=== PATIENT | male | born 1960 | race Caucasian/White ===

== ENCOUNTER → 2019-03-12 15:02 | Outpatient (BNVA) | payer OTHER, SELFPAY | PROVIDERS: Family Provider Internal Medicine; PCP Internal Medicine; Visit Provider Anesthesiology | DX: M25.551 Pain in right hip (principal); Z79.891 Long term (current) use of opiate analgesic | CPT/HCPCS: 99214 ==

== ENCOUNTER → 2019-05-08 07:47 | Outpatient (BNVA) | payer OTHER, SELFPAY | PROVIDERS: Family Provider Internal Medicine; PCP Internal Medicine; Visit Provider Anesthesiology | DX: M25.551 Pain in right hip (principal); M51.26 Other intervertebral disc displacement, lumbar region; M51.36 Other intervertebral disc degeneration, lumbar region; M54.17 Radiculopathy, lumbosacral region; G62.9 Polyneuropathy, unspecified; Z79.891 Long term (current) use of opiate analgesic | CPT/HCPCS: 99214 ==

== ENCOUNTER → 2019-09-11 13:40 | Outpatient (BNVA) | payer OTHER, SELFPAY | PROVIDERS: Family Provider Internal Medicine; PCP Internal Medicine; Visit Provider Nurse Practitioner | DX: M51.26 Other intervertebral disc displacement, lumbar region (principal); M51.36 Other intervertebral disc degeneration, lumbar region; F17.220 Nicotine dependence, chewing tobacco, uncomplicated; Z79.891 Long term (current) use of opiate analgesic; Z71.6 Tobacco abuse counseling | CPT/HCPCS: 99213; 99214 ==

== ENCOUNTER → 2019-10-31 08:03 | Outpatient (BNVA) | payer OTHER, SELFPAY | PROVIDERS: Family Provider Internal Medicine; PCP Internal Medicine; Visit Provider Anesthesiology | DX: M54.41 Lumbago with sciatica, right side (principal); M51.36 Other intervertebral disc degeneration, lumbar region; M51.26 Other intervertebral disc displacement, lumbar region; M54.17 Radiculopathy, lumbosacral region; G62.9 Polyneuropathy, unspecified; F17.220 Nicotine dependence, chewing tobacco, uncomplicated; Z79.891 Long term (current) use of opiate analgesic; Z71.6 Tobacco abuse counseling | CPT/HCPCS: 99214 ==

== ENCOUNTER → 2020-01-07 08:34 | Outpatient (BNVA) | payer OTHER, SELFPAY | PROVIDERS: Family Provider Internal Medicine; PCP Family Medicine; Visit Provider Anesthesiology | DX: M51.26 Other intervertebral disc displacement, lumbar region (principal); M25.551 Pain in right hip; M54.17 Radiculopathy, lumbosacral region; M51.36 Other intervertebral disc degeneration, lumbar region; M54.9 Dorsalgia, unspecified; G62.9 Polyneuropathy, unspecified; F17.220 Nicotine dependence, chewing tobacco, uncomplicated; Z79.891 Long term (current) use of opiate analgesic; Z71.6 Tobacco abuse counseling | CPT/HCPCS: 99214 ==

== ENCOUNTER → 2020-03-04 08:03 | Outpatient (BNVA) | payer OTHER, SELFPAY | PROVIDERS: Family Provider Internal Medicine; PCP Family Medicine; Visit Provider Anesthesiology | DX: G89.29 Other chronic pain (principal); M51.26 Other intervertebral disc displacement, lumbar region; M51.36 Other intervertebral disc degeneration, lumbar region; M54.17 Radiculopathy, lumbosacral region; M54.9 Dorsalgia, unspecified; F17.220 Nicotine dependence, chewing tobacco, uncomplicated; Z79.891 Long term (current) use of opiate analgesic | CPT/HCPCS: 99213; 99214 ==

== ENCOUNTER → 2020-05-05 10:54 | Outpatient (BNVA) | payer OTHER, SELFPAY | PROVIDERS: Family Provider Internal Medicine; PCP Family Medicine; Visit Provider Anesthesiology | DX: M51.26 Other intervertebral disc displacement, lumbar region (principal); M51.36 Other intervertebral disc degeneration, lumbar region; M54.9 Dorsalgia, unspecified; M54.17 Radiculopathy, lumbosacral region; F17.220 Nicotine dependence, chewing tobacco, uncomplicated; Z79.891 Long term (current) use of opiate analgesic | CPT/HCPCS: 99213 ==

== ENCOUNTER → 2020-06-30 08:02 | Outpatient (BNVA) | payer OTHER, SELFPAY | PROVIDERS: Family Provider Internal Medicine; PCP Family Medicine; Visit Provider Anesthesiology | DX: M51.26 Other intervertebral disc displacement, lumbar region (principal); M54.9 Dorsalgia, unspecified; M54.17 Radiculopathy, lumbosacral region; M51.36 Other intervertebral disc degeneration, lumbar region; F17.220 Nicotine dependence, chewing tobacco, uncomplicated; Z79.891 Long term (current) use of opiate analgesic | CPT/HCPCS: 99213 ==

== ENCOUNTER → 2020-08-27 08:48 | Outpatient (BNVA) | payer OTHER, SELFPAY | PROVIDERS: Family Provider Internal Medicine; PCP Family Medicine; Visit Provider Anesthesiology | DX: M51.26 Other intervertebral disc displacement, lumbar region (principal); M51.36 Other intervertebral disc degeneration, lumbar region; M54.17 Radiculopathy, lumbosacral region; F17.220 Nicotine dependence, chewing tobacco, uncomplicated; Z79.891 Long term (current) use of opiate analgesic | CPT/HCPCS: 99213 ==

== ENCOUNTER → 2020-11-05 10:30 | Outpatient (BNVA) | payer OTHER, SELFPAY | PROVIDERS: Family Provider Internal Medicine; PCP Family Medicine; Visit Provider Nurse Practitioner | DX: M51.26 Other intervertebral disc displacement, lumbar region (principal); M51.36 Other intervertebral disc degeneration, lumbar region; M54.17 Radiculopathy, lumbosacral region; G62.9 Polyneuropathy, unspecified; F17.220 Nicotine dependence, chewing tobacco, uncomplicated; Z79.891 Long term (current) use of opiate analgesic | CPT/HCPCS: 99212; 99213 ==

== ENCOUNTER → 2020-12-30 09:26 | Outpatient (BNVA) | payer OTHER, SELFPAY | PROVIDERS: Family Provider Internal Medicine; PCP Family Medicine; Visit Provider Anesthesiology | DX: M51.26 Other intervertebral disc displacement, lumbar region (principal); M54.17 Radiculopathy, lumbosacral region; M51.36 Other intervertebral disc degeneration, lumbar region; G62.9 Polyneuropathy, unspecified; F17.220 Nicotine dependence, chewing tobacco, uncomplicated; Z79.891 Long term (current) use of opiate analgesic; Z71.6 Tobacco abuse counseling | CPT/HCPCS: 99213; 99214 ==

== ENCOUNTER → 2021-02-02 09:42 | Outpatient (BNVA) | payer OTHER, SELFPAY | PROVIDERS: Family Provider Internal Medicine; PCP Family Medicine; Visit Provider Urology | DX: Q55.69 Other congenital malformation of penis (principal) | CPT/HCPCS: 81003 ==

== ENCOUNTER → 2021-03-01 10:20 | Outpatient (BNVA) | payer OTHER, SELFPAY | PROVIDERS: Family Provider Internal Medicine; PCP Family Medicine; Visit Provider Anesthesiology | DX: M51.26 Other intervertebral disc displacement, lumbar region (principal); M54.17 Radiculopathy, lumbosacral region; M51.36 Other intervertebral disc degeneration, lumbar region; G62.9 Polyneuropathy, unspecified; F17.220 Nicotine dependence, chewing tobacco, uncomplicated; Z79.891 Long term (current) use of opiate analgesic | CPT/HCPCS: 99214 ==

== ENCOUNTER 2021-12-07 10:39 | Outpatient (CLI) | payer MEDICARE, OTHER, SELFPAY ==
--- NOTE | 2021-12-07 | MR_ITS ---
WS: [id number] MRI LUMBAR SPINE WITH AND WITHOUT CONTRAST HISTORY: LUMBAR SPONDYLOSIS WITH RADICULOPATHY, prior laminectomies. COMPARISON: 05/18/2015 TECHNIQUE: Sagittal and axial multisequence imaging is submitted. Sagittal and axial T1 fat sat seque nces post-MultiHance 20 cc IV. Mild straightening of the normal cervical lordosis and thoracic kyphosis. Very minimal disc bulging i n the cervical and thoracic spine with no cord compression. Straightening of the normal lumbar lordosis. L3 retrolisthesis by 3 mm has slightly progressed since the prior study. Mild progression of degenerative disc space narrowing and desiccation throughout the lumbar spine. Most significant narrowing of the disc is at L4-5. No marrow edema or fracture. Conus terminates normally at L1. L1-L2: Mild facet arthritis. No stenosis. L2-L3: Mild osteophytic ridging and annular disc bulging. Mild ligamentum flavum and facet arthritis. No stenosis. L3-L4: Mild retrolisthesis of L3 encroaching upon the thecal sac. Mild osteophytic ridging with ligam entum flavum and facet arthritis. RIGHT hemilaminectomy defect. Mild deformity of the thecal sac due to adhesions, similar to the prior study. Again noted is a small RIGHT paracentral disc protrusion as seen on the prior study. Mild encroachment into the RIGHT subarticular recess. L4-L5: Mild annular disc bulging encroaching upon the ventral thecal sac. Moderate facet and ligament um flavum arthritis. Nerve roots are becoming clumped within the periphery of the thecal sac. Small R IGHT hemilaminectomy defect. Mild RIGHT foraminal narrowing due to osteophyte and disc disease. L5-S1: Mild annular disc bulge with facet and ligamentum flavum arthritis. Mild RIGHT foraminal steno sis. There is mild disc contact on the exiting L5 nerve root. No discitis or osteomyelitis. MR/MR lumbar spine wo/w con [id number] IMPRESSION: 1. Mild progression of degenerative disc disease and spondylosis since 2015. 2. Prior laminectomy defects on the RIGHT L3-4 and L4-5. 3. Mild RIGHT foraminal stenosis at L5-S1 with mild disc contact on the exitin g L5 nerve root. 4. Small RIGHT paracentral disc protrusion at L3-4. Mild RIGHT subarticular re cess narrowing. 5. Mild RIGHT foraminal narrowing at L4-5. 6. No high-grade central stenosis.
[2021-12-07] MEDS: gadobenate dimeglumine 20 mL vial IV (12:03)
== END 2021-12-07 10:40 | disposition home or self-care (01) ==
PROVIDERS: PCP Family Medicine; Visit Provider General Practice
DX: M47.27 Other spondylosis with radiculopathy, lumbosacral region (principal); M51.36 Other intervertebral disc degeneration, lumbar region; M96.1 Postlaminectomy syndrome, not elsewhere classified; M48.07 Spinal stenosis, lumbosacral region; M51.26 Other intervertebral disc displacement, lumbar region
CPT/HCPCS: 72158

== ENCOUNTER → 2022-04-11 14:31 | Outpatient (BNVA) | payer OTHER, SELFPAY | PROVIDERS: PCP Family Medicine; Visit Provider Thoracic Surgery (Cardiothoracic Vascular Surgery) | DX: I73.9 Peripheral vascular disease, unspecified (principal); F17.210 Nicotine dependence, cigarettes, uncomplicated | CPT/HCPCS: 99203 ==

== ENCOUNTER → 2023-03-22 14:27 | Outpatient (BNVA) | payer OTHER, SELFPAY | PROVIDERS: PCP Family Medicine; Visit Provider Podiatrist Foot & Ankle Surgery | DX: M79.671 Pain in right foot (principal); S92.911A Unspecified fracture of right toe(s), initial encounter for closed fracture; X58.XXXA Exposure to other specified factors, initial encounter | CPT/HCPCS: 73630; 99203 ==

== ENCOUNTER 2023-12-04 06:40 | Outpatient (CLI) | payer OTHER, SELFPAY ==
--- NOTE | 2023-12-04 07:00 | USCV_ITS ---
Saurabh Rivas Age: 63 Gender: M : 1960 Exam Date: 12/04/2023 06:55 Ordering Phys: Deyanira Dacosta MD Technologist: OLEKSANDR [place] [facility] [place] BLE PAIN AND CRAMPING HISTORY: Lower extremity pain. PROCEDURES: Venous duplex imaging was performed in bilateral lower extremities. The following venous structures were evaluated: common femoral vein, profunda vein, proximal portion of the greater saphenous vein, superficial femoral vein, and the popliteal vein. In addition, the posterior tibial and peroneal trunk were evaluated. Serial compression, augmentation maneuvers, and spectral Doppler flow evaluation were performed. FINDINGS: Normal 2-D Doppler and augmentation and compressibility throughout the lower extremity venous structures. Additional imaging through the proximal calf veins also reveals no thrombus. Limited evaluation of the greater saphenous vein is patent with no thrombus. CONCLUSIONS No DVT bilateral lower extremities. Dr. Monica Mireles DO (Electronically Signed) Final Date: 04 December 2023 12:52 S
== END 2023-12-04 06:41 | disposition home or self-care (01) ==
PROVIDERS: PCP Family Medicine; Visit Provider Family Medicine
DX: M79.604 Pain in right leg (principal)
CPT/HCPCS: 93970

== ENCOUNTER 2024-01-25 10:57 | Outpatient (CLI) | payer OTHER, SELFPAY ==
--- NOTE | 2024-01-25 11:01 | USCV_ITS ---
Saurabh Rivas Age: 63 Gender: M : 1960 Exam Date: 01/25/2024 11:26 Ordering Phys: Deyanira Dacosta MD Technologist: USR [place] [facility] [place]: pain Risk Factors: Previous Vascular Surgery: RIGHT LEFT BP: 130.0 / 81.00 BP: 129.0/ 85.00 0 0 Waveform Velocity (cm/s) Velocity (cm/s) Waveform Triphasic 80.2 Iliac Prox 76.6 Triphasic Triphasic 73.5 Iliac Mid 79.1 Triphasic Triphasic Iliac Distal Triphasic 75.6 74.1 Triphasic 76.0 BEEF CATTLE GRAZIER 49.0 Triphasic Triphasic 57.0 SFA Prox 58.0 Triphasic Triphasic 63.0 SFA Mid 70.0 Triphasic Triphasic 65.0 SFA Dist 77.0 Triphasic Triphasic 41.0 POP 63.0 Triphasic Triphasic 36.0 MUSEUM SPECIALIST 89.0 Triphasic Triphasic 43.0 DPA 23.0 Biphasic 1.1 SABRINA 1.1 FINDINGS Resting SABRINA 1.1 on the right and 1.1 on the left. Normal arterial Doppler waveforms and velocities bilaterally. Normal arterial Doppler flow velocities CONCLUSIONS Normal resting ABIs bilaterally of 1.1 bilaterally. No evidence of any significant arterial obstruction, based on the above findings. Dr Efra Pedroza MD [facility] (Electronically Signed) Final Date: 25 January 2024 15:32 S
== END 2024-01-25 10:58 | disposition home or self-care (01) ==
LOC: RAD 10:57
PROVIDERS: PCP Family Medicine; Visit Provider Family Medicine
DX: I73.9 Peripheral vascular disease, unspecified (principal)
CPT/HCPCS: 93925

== ENCOUNTER → 2024-02-04 13:18 | Outpatient (BNVA) | payer OTHER, SELFPAY | PROVIDERS: PCP Family Medicine; Referring Provider Internal Medicine; Visit Provider Internal Medicine | DX: I44.0 Atrioventricular block, first degree (principal); R07.9 Chest pain, unspecified | CPT/HCPCS: 93005; 99204 ==

== ENCOUNTER → 2024-02-05 09:14 | Outpatient (BNVA) | payer OTHER, SELFPAY | PROVIDERS: PCP Family Medicine; Visit Provider Orthopaedic Surgery | DX: M54.17 Radiculopathy, lumbosacral region (principal); M48.062 Spinal stenosis, lumbar region with neurogenic claudication | CPT/HCPCS: 72110; 99204 ==

== ENCOUNTER 2024-02-28 10:38 | Outpatient (CLI) | payer OTHER, SELFPAY ==
--- NOTE | 2024-02-28 10:15 | MR_ITS ---
WS: [id number] MRI LUMBAR SPINE NONCONTRAST HISTORY: Chronic back and RIGHT lower extremity pain. COMPARISON: 12/07/2021 TECHNIQUE: Sagittal and axial multisequence imaging is submitted. Straightening of the normal lumbar lordosis. 2 mm retrolisthesis of L2 and L3. No fractures or marrow edema. Disc spaces are narrowed and desiccated. Most significant narrowing at L4-5. Conus terminates normally at L1-2 disc level. L1-L2: No stenosis. L2-L3: Mild annular disc bulging encroaching upon the ventral thecal sac. No stenosis. L3-L4: Mild annular disc bulging with osteophytic ridging. Mild ligamentum flavum and facet arthritis . RIGHT hemilaminectomy defect and ligamentum flavum debridement. Very mild encroachment upon the tra versing L4 nerve roots. Mild foraminal narrowing. L4-L5: Diffuse mild annular disc bulging encroaching upon the ventral thecal sac. Facet joint arthrit is. RIGHT hemilaminectomy defect with ligamentum flavum debridement. Moderate RIGHT foraminal stenosi s and minimal on the LEFT. There is mild encroachment upon the traversing L5 nerve roots. L5-S1: Annular disc bulging. Marked ligamentum flavum and facet arthritis. Moderate RIGHT and mild LE FT foraminal stenosis. There is disc contact on the exiting RIGHT L5 nerve root. Similar to the prior study. Paravertebral soft tissues are negative. Seen on one of the localizer images is a well-circumscribed mass about the spleen. This may be the stomach but should be further evaluated. MR/MR lumbar spine wo con* [id number] IMPRESSION: 1. Status post prior RIGHT hemilaminectomies with ligamentum flavum debridemen t at L3-4 and L4-5. 2. L5-S1: Moderate RIGHT and mild LEFT foraminal stenosis. Disc contacts the e xiting RIGHT L5 nerve root. Minimal progression since the prior study. 3. L3-4: Mild disc encroachment upon the traversing L4 nerve roots and mild fo raminal narrowing. 4. L4-5: Moderate RIGHT and mild LEFT foraminal stenosis. There is mild encroa chment upon the traversing L5 nerve roots by disc disease. 5. Seen on the localizer image is a soft tissue mass abutting the superior spl een. This may be the stomach but needs to be further evaluated. Consider CT jerod luation of the abdomen to ensure there is no mass in the LEFT upper quadrant. C T can be done with IV and oral contrast.
== END 2024-02-28 10:39 | disposition home or self-care (01) ==
PROVIDERS: PCP Family Medicine; Visit Provider Orthopaedic Surgery
DX: M51.360 Other intervertebral disc degeneration, lumbar region with discogenic back pain only (principal); M54.17 Radiculopathy, lumbosacral region; Z98.890 Other specified postprocedural states; M99.63 Osseous and subluxation stenosis of intervertebral foramina of lumbar region; R19.00 Intra-abdominal and pelvic swelling, mass and lump, unspecified site
CPT/HCPCS: 72148

== ENCOUNTER → 2024-04-01 10:49 | Outpatient (BNVA) | payer OTHER, SELFPAY | PROVIDERS: PCP Family Medicine; Visit Provider Orthopaedic Surgery | DX: Z09 Encounter for follow-up examination after completed treatment for conditions other than malignant neoplasm (principal) | CPT/HCPCS: 99214 ==